=== PATIENT | female | born 2005 | race Caucasian/White ===

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

== ENCOUNTER 2024-02-24 11:28 | Emergency (ER) | payer BC, OTHER, SELFPAY ==
[2024-02-24 11:31] VITALS: BP 108/80; PULSE 92; TEMP 36.9; O2SAT 98; BMI 25.8
--- NOTE | 2024-02-24 11:51 | ECG_ITS ---
[facility] Test Date: 2024-02-24 Pat Name: DONIS MAC Department: Room: - Gender: Female Ethics Instructor: : 2005 Requested By: SAMANTHA FIELDS Order Number: [id number] Reading MD: SAMANTHA FIELDS Measurements Intervals [place] Rate: 78 P: 75 NE: 158 QRS: 78 QRSD: 72 T: 261 QT: 366 QTc: 399 Interpretive Statements 1100 Sinus rhythm [address] depression 4564 Twave abnormality, possible lateral ischemia 4664 Twave abnormality, possible inferior ischemia 6120 Possible right atrial enlargement 9150 abnormal ECG No previous ECG available for comparison Electronically Signed On 02-26-2024 5:10:12 EST by SAMANTHA FIELDS
--- NOTE | 2024-02-24 12:08 | ED.GENADUL1 ---
HPI HPI - General Adult General Chief complaint: Psychiatric Symptoms Stated complaint: SUICIDAL IDEOLOGIES, MENTAL STATUS ALTERED Time Seen by Provider: 02/24/24 12:06 Source: patient Mode of arrival: ambulance History of Present Illness HPI narrative: Patient is a 18yo who is presenting to the ER with EMS with suicidal ideation. Patient states she has agoraphobia. Patient was driving to her boyfriend's house in [place], patient started having panic attack secondary to agoraphobia. Patient has no time. Patient did attempt to overdose on Tylenol when she was 11 years old. Patient states she has daily thoughts of dying. Patient is very involved with a counselor and therapist. Patient has an appointment tomorrow at 9 AM with her counselor. Patient has no headache. Patient does have abrasions to the top of her head when she has a agoraphobia situation where she panics, she has a tendency to scratch herself, and hit her head and head but different things. She has no hematoma, she does have abrasions to the midline of her scalp and upper forehead. Patient has no cuts or scratches to her arms, legs, abdomen, no other acute signs of self-harm. Patient is not overdosed on her medication today. No alcohol drugs today. Patient was on her way to her boyfriend's. She does not work. Patient has been on multiple medications the last 3 years trying to help with depression, agoraphobia, suicidal thoughts. Patient has flat affect, has been very cooperative. Patient states that she has been in the hospital 3 different times, and that has not helped her, she does not believe going back to the hospital again would help her patient says she is compliant with her medications. All systems are negative except as noted/marked. All systems reviewed and otherwise negative. Nurses note and vital signs reviewed and patient is not hypoxic. General: The patient appears well and in no apparent distress. Patient is resting comfortably on cart. Patient is not toxic, lethargic, or listless Skin: Warm, dry, no pallor noted. There is no rash noted. No petechiae, purpura. No signs of cutting or self-harm to her arms, legs, thighs, abdomen. Patient does have abrasions to the hairline of her frontal scalp, no hematomas, no lacerations. Head: Normocephalic, atraumatic Eye: Normal conjunctiva, no drainage, EOMI. PERRL Ears, Nose, Mouth, and Throat: oral mucosa is moist. Nares patent. Mouth without vesicles. Cardiovascular: Regular Rate and Rhythm, no murmur, gallop, rub Respiratory: Patient is in no distress, no accessory muscle use, lungs are clear to auscultation, no wheezing, rales or rhonchi Back: non-tender, no CVA tenderness bilaterally to percussion. No CT LS midline pain GI: no tenderness to palpation, no masses appreciated. No rebound, guarding, or rigidity noted. No distention Musculoskeletal: Patient has full range of motion of all of the extremities, no motor, sensory, or focal neurological deficits Neurological: A&O x4, slow quiet normal speech Psychiatric: Cooperative, patient has suicidal thoughts daily, but she actively states she would not hurt herself or kill herself, she has no plan to do this, stating that I am a pussy and I would never do that flat affect. Related Data Home Medications ?Medication ?Instructions ?Recorded ?Confirmed norgestimate 0.18 mg/0.215 mg/0.25 1 tab PO DAILY 02/24/24 02/24/24 mg-ethinyl estradiol 25 mcg tablet (Tri-Lo-Padmini) venlafaxine 37.5 mg tablet 37.5 mg PO DAILY 02/24/24 02/24/24 Allergies Allergy/AdvReac Type Severity Reaction Status Date / Time No Known Drug Allergies Allergy Verified 10/18/22 12:48 Opioid HPI Opioid Management Most Recent Opioid Data: Ur Phencyclidine Scrn Negative (NEGATIVE) 02/24/24 11:47 02/24/24 Exam Constitutional Vital Signs, click to edit/add: Last Vital Signs Temp 98.5 F 02/24/24 11:31 Pulse 70 02/24/24 14:34 Resp 16 02/24/24 14:34 BP 106/70 02/24/24 14:34 Pulse Ox 98 02/24/24 14:34 O2 Del Method Room Air 02/24/24 11:31 Course Vital Signs Vital signs: Vital Signs Temperature 98.5 F 02/24/24 11:31 Pulse Rate 92 H 02/24/24 11:31 Respiratory Rate 16 02/24/24 11:31 Blood Pressure 108/80 02/24/24 11:31 Pulse Oximetry 98 02/24/24 11:31 Oxygen Delivery Method Room Air 02/24/24 11:31 Temperature 98.5 F 02/24/24 11:31 Pulse Rate 70 02/24/24 14:34 Respiratory Rate 16 02/24/24 14:34 Blood Pressure 106/70 02/24/24 14:34 Pulse Oximetry 98 02/24/24 14:34 Oxygen Delivery Method Room Air 02/24/24 11:31 Medical Decision Making MDM Narrative Medical decision making narrative: Please see [facility] consultation notes. Patient has a safety plan that she will go home and stay with her boyfriend for the next 3 days. Patient does have a scheduled appointment at 9 AM tomorrow, patient will go to that appointment tomorrow to see a counselor. Patient stated that she I am a pussy and I would never kill myself to myself at discharge.patient states that she will have intermittent thoughts of dying for the last several years, but states that she would never do that to herself. Patient has no acute findings on testing today. Patient understands she can return back to the ER if any other new acute concerns. Lab Data Labs: Lab Results 02/24/24 02/24/24 Range/Units 11:47 12:18 WBC 9.3 (4.0-11.0) 10^3/uL RBC 4.99 (4.20-5.40) 10^6/uL Hgb 15.5 (12.0-16.0) g/dL Hct 45.2 (36.0-48.0) % MCV 90.6 (81.0-99.0) fL MCH 31.1 (26.7-34.0) pg MCHC 34.3 (29.9-35.2) g/dL RDW 11.9 (11.0-15.0) % Plt Count 279 (150-450) 10^3/uL MPV 10.9 (9.5-13.5) fL Neut % (Auto) 65.7 (43.0-75.0) % Lymph % (Auto) 22.6 (20.5-60.0) % [place] % (Auto) 7.2 (1.7-12.0) % Eos % (Auto) 4.0 (0.9-7.0) % Baso % (Auto) 0.3 (0.2-2.0) % Neut # (Auto) 6.1 (1.4-6.5) 10^3/uL Lymph # (Auto) 2.1 (1.2-3.8) 10^3/uL [place] # (Auto) 0.7 (0.3-0.8) 10^3/uL Eos # (Auto) 0.4 (0.0-0.7) 10^3/uL Baso # (Auto) 0.0 (0.0-0.1) 10^3/uL Abs Immat Gran (auto) 0.02 (0.00-0.03) 10^3/uL Imm/Tot Granulo (auto) 0.2 (0.0-0.5) % Sodium 142 (136-145) mmol/L Potassium 4.3 (3.5-5.1) mmol/L Chloride 107 (98-107) mmol/L Carbon Dioxide 21.6 (21.0-32.0) mmol/L Anion Gap 17.7 BUN 8.0 (6.4-19.3) mg/dL Creatinine 0.84 (0.55-1.02) mg/dL Est GFR ( Amer) >60 (>=60 mL/min/1.73m^2) Est GFR (Non-Af Amer) >60 (>=60 mL/min/1.73m^2) BUN/Creatinine Ratio 9.5 Glucose 90 (74-106) mg/dL Calcium 9.5 (8.5-10.1) mg/dL Total Bilirubin 0.5 (0.2-1.0) mg/dL AST 17 (15-37) U/L ALT 11 L (14-59) U/L Alkaline Phosphatase 77 (46-116) U/L Total Protein 7.5 (6.4-8.2) g/dL Albumin 4.2 (3.4-5.0) g/dL Globulin 3.3 g/dL Albumin/Globulin Ratio 1.3 Urine Color Lt. yellow (YELLOW) Urine Clarity Sl cloudy (CLEAR) Urine pH 6.5 (5.0-9.0) Ur Specific [place] 1.020 (1.005-1.025) Urine Protein 30 A (NEG/TRACE) mg/dL Urine Glucose (UA) Negative (NEGATIVE) mg/dL Urine Ketones Negative (NEGATIVE) mg/dL Urine Occult Blood Large A (NEGATIVE) Urine Nitrite Negative (NEGATIVE) Urine Bilirubin Negative (NEGATIVE) Urine Urobilinogen 0.2 (0.2-1.0) EU/dL Ur Leukocyte Esterase Negative (NEGATIVE) Urine RBC 50-75 A (0-2) #/HPF Urine WBC None seen (NONE SEEN) #/HPF Ur Squamous Epith Cells Few A (NONE/RARE) #/LPF Urine Crystals None seen (None Seen) #/HPF Urine Bacteria Small A (NONE SEEN) #/HPF Urine Casts None seen (NONE SEEN) #/LPF Urine Mucus Trace A (NONE SEEN) Ur Culture Indicated? Yes Urine HCG, Qual Negative (NEGATIVE) Salicylates <2.8 (<=19.9) mg/dL Urine Opiates Screen Negative (NEGATIVE) Ur Buprenorphine Scrn Negative (NEGATIVE) Ur Oxycodone Screen Negative (NEGATIVE) Urine Methadone Screen Negative (NEGATIVE) Acetaminophen <2.0 L (10.0-30.0) ug/mL Ur Barbiturates Screen Negative (NEGATIVE) U Tricyclic Antidepress Negative (NEGATIVE) Ur Phencyclidine Scrn Negative (NEGATIVE) Ur Amphetamines Screen Negative (NEGATIVE) U Methamphetamines Scrn Negative (NEGATIVE) U Benzodiazepines Scrn Negative (NEGATIVE) Urine Cocaine Screen Negative (NEGATIVE) U Cannabinoids Screen Positive A (NEGATIVE) Ethanol Quant <3 mg/dL ECG Data Attestation: I personally reviewed and interpreted this ECG as follows: (EKG interpretation. Normal sinus rhythm at 78 beats a minute. Normal axis deviation. I have no old EKG to compare this to. Diffuse ST depression/T wave inversion throughout EKG. QTc of 399) Discharge Plan Discharge Chief Complaint: Psychiatric Symptoms Clinical Impression: Suicidal ideation Patient Disposition: Home, Self-Care Time of Disposition Decision: 14:49 Condition: Fair Mode of Transportation: Private Vehicle Prescriptions / Home Meds: No Action norgestimate-ethinyl estradiol [Tri-Lo-Padmini] 0.18/0.215/0.25 mg-25 mcg tablet 1 tab PO DAILY venlafaxine 37.5 mg tablet 37.5 mg PO DAILY Print Language: Italian Instructions: Help Prevent Suicide (ED), Suicide Prevention (ED) Additional Instructions: Follow-up with your therapist/counselor tomorrow at your scheduled appointment at 9 AM. If any of your thoughts of self-harm or anything else acutely changes, please come back to the ER for reevaluation. Use antibiotic ointment to areas of abrasions to your scalp. Referrals: GILDA ANDRADE [Primary Care Provider] - 1 week Discharge Date/Time: 02/24/24 15:13
--- NOTE | 2024-02-24 12:12 | PC.NURSE ---
pt talking to [facility] Hot line Liya at this time. Number provided by pt for counseling called, this number is the [facility] at [phone] and unable to talk to anyone d/t closed on Mondays. Will inform Liya of this information. Pt has a constant sitter at this time. She is calm and cooperative.
[2024-02-24 12:27] LABS: Basophils Percent Auto 0.3 % (0.2-2.0); Eosinophils Absolute Auto 0.4 10^3/uL (0.0-0.7); Hematocrit 45.2 % (36.0-48.0); Hemoglobin 15.5 g/dL (12.0-16.0); Immature Granulocytes Abs Auto 0.02 10^3/uL (0.00-0.03); Immature Granulocytes Pct Auto 0.2 % (0.0-0.5); Lymphocytes Absolute Auto 2.1 10^3/uL (1.2-3.8); Lymphocytes Percent Auto 22.6 % (20.5-60.0); Mean Corpuscular HGB Conc 34.3 g/dL (29.9-35.2); Mean Corpuscular Hemoglobin 31.1 pg (26.7-34.0); Mean Corpuscular Volume 90.6 fL (81.0-99.0); Mean Platelet Volume 10.9 fL (9.5-13.5); Monocytes Absolute Auto 0.7 10^3/uL (0.3-0.8); Monocytes Percent Auto 7.2 % (1.7-12.0); Neutrophils Absolute Auto 6.1 10^3/uL (1.4-6.5); Neutrophils Percent Auto 65.7 % (43.0-75.0); Platelet Count 279 10^3/uL (150-450); Red Blood Count 4.99 10^6/uL (4.20-5.40); Red Cell Distribution Width 11.9 % (11.0-15.0); White Blood Count 9.3 10^3/uL (4.0-11.0)
[2024-02-24 12:44] LABS: Acetaminophen <2.0 ug/mL (10.0-30.0); Alanine Aminotransferase 11 U/L (14-59); Albumin Globulin Ratio 1.3; Albumin Level 4.2 g/dL (3.4-5.0); Alkaline Phosphatase 77 U/L (46-116); Anion Gap 17.7; Aspartate Amino Transferase 17 U/L (15-37); BUN Creatinine Ratio 9.5; Bilirubin Total 0.5 mg/dL (0.2-1.0); Calcium 9.5 mg/dL (8.5-10.1); Carbon Dioxide 21.6 mmol/L (21.0-32.0); Chloride 107 mmol/L (98-107); Estimated GFR (African America >60 (>=60 mL/min/1.73m^2); Estimated GFR (Non-African Ame >60 (>=60 mL/min/1.73m^2); Ethanol <3 mg/dL; Globulin 3.3 g/dL; Glucose 90 mg/dL (74-106); Potassium 4.3 mmol/L (3.5-5.1); Salicylate <2.8 mg/dL (<=19.9); Sodium 142 mmol/L (136-145); Total Protein 7.5 g/dL (6.4-8.2)
[2024-02-24 13:02] LABS: Bilirubin Urine NEGATIVE (NEGATIVE); Blood Urine LARGE (NEGATIVE); Clarity Urine SL CLOUDY (CLEAR); Color Urine LT. YELLOW (YELLOW); Glucose Urine UA NEGATIVE (NEGATIVE); Ketones Urine NEGATIVE (NEGATIVE); Leukocyte Esterase Urine NEGATIVE (NEGATIVE); Nitrite Urine NEGATIVE (NEGATIVE); Protein Urine 30 mg/dL (NEG/TRACE); Urobilinogen Urine 0.2 EU/dL (0.2-1.0); pH Urine 6.5 (5.0-9.0)
[2024-02-24 13:05] LABS: HCG Qualitative Urine* NEGATIVE (NEGATIVE); Internal Control Within Normal Limits
[2024-02-24 13:12] LABS: Urine Microscopic Indicated YES
[2024-02-24 13:16] LABS: Amphetamine Screen Urine NEGATIVE (NEGATIVE); Barbiturates Screen Urine NEGATIVE (NEGATIVE); Benzodiazepines Screen Urine NEGATIVE (NEGATIVE); Buprenorphine Screen Urine NEGATIVE (NEGATIVE); Cannabinoid Screen Urine POSITIVE (NEGATIVE); Cocaine Screen Urine NEGATIVE (NEGATIVE); Methadone Screen Urine NEGATIVE (NEGATIVE); Methamphetamines Screen Urine NEGATIVE (NEGATIVE); Opiate Screen Urine NEGATIVE (NEGATIVE); Oxycodone Screen Urine NEGATIVE (NEGATIVE); Phencyclidine Screen Urine NEGATIVE (NEGATIVE); Tricyclic Antidepressant Urine NEGATIVE (NEGATIVE)
[2024-02-24 13:19] LABS: RBC Urine 50-75 #/HPF (0-2); WBC Urine NONE SEEN #/HPF (NONE SEEN)
[2024-02-24 13:20] LABS: Bacteria Urine SMALL #/HPF (NONE SEEN); Cast Seen? NONE SEEN #/LPF (NONE SEEN); Crystals Seen? None Seen #/HPF (None Seen); Mucus Urine TRACE (NONE SEEN); Squamous Epithelial Cell Urine FEW #/LPF (NONE/RARE); Urine Culture Indicated YES
[2024-02-24 13:47] VITALS: BP 105/63; PULSE 72; O2SAT 100
[2024-02-24 14:34] VITALS: BP 106/70; PULSE 70; O2SAT 98
== END 2024-02-24 15:13 | disposition home or self-care (01) ==
PROVIDERS: Emergency Provider Emergency Medicine; PCP Family Medicine
DX: R45.851 Suicidal ideations (principal)
CPT/HCPCS: 36415; 80053; 80179; 80307; 80320; 80329; 81001; 84703; 85025; 87086; 93005; 99285